=== PATIENT | male | born 1980 | race Two or more races ===

== ENCOUNTER 2024-12-31 12:34 | Outpatient (REF) | payer MEDICAID, SELFPAY ==
[2024-12-31 14:35] LABS: Alanine Aminotransferase 36 U/L (0-40); Albumin Level 4.7 g/dL (3.5-5.0); Alkaline Phosphatase 93 U/L (39-117); Anion Gap 13 (12-20); Aspartate Amino Transferase 32 U/L (5-37); Blood Urea Nitrogen 10 mg/dL (9-16); Calcium 9.2 mg/dL (8.4-10.2); Carbon Dioxide 29 mmol/L (22-29); Chloride 104 mmol/L (96-108); Cholesterol 160 mg/dL (<200); Estimated Glomerular Filt Rate > 60; HDL Cholesterol 46 mg/dL (>40); Potassium 3.6 mmol/L (3.3-5.1); Sodium 142 mmol/L (135-145); Total Protein 7.5 g/dL (6.5-8.0); Triglycerides 200 mg/dL (<150)
[2024-12-31 15:12] LABS: Microalbum/Creatinine Ratio Ur 17.6 ug/mg cr (<30)
--- OUTSIDE RECORDS SUMMARY | 2024-12-31 15:31 | XMS_ITS | Clinical Summary ---
Author Organization [employer] Address [address] [facility] 7t [place] [address] Care Team Providers Care Nocturnist Name Role Phone Unavailable Primary Care Provider Unavailabl e Allergies No known active allergies Medications benztropine (Cogentin) 0.5 MG tablet Take 0.5 mg by mouth in the morning. 10/04/19 25 Active Suboxone 2-0.5 MG per sublingual film PLACE THREE (3) FILMS UNDER THE TONGUE DAILY 10/04/19 25 Active Suboxone 8-2 MG SL film TAKE 1 FILM SUBLINGUALLY EVERY DAY 11/16/19 25 Active busPIRone (Buspar) 15 MG tablet Take 1 tablet by mouth 2 times daily. 10/04/19 25 Active haloperidol decanoate (Haldol Decanoate) 50 MG/ML injection INJECT 1 ML INTRAMUSCULARLY ONCE A MONTH LAST INJECTION GIVEN 09/05/24 10/05/19 25 Active naloxone (Narcan) 4 mg/0.1 mL nasal spray USE 1 SPRAY IN 1 NOSTRIL NEEDED FOR OPIOID OVERDOSE. MAY REPEAT EVERY 3 MINS IN ALTERNATE NOSTRIL 10/04/19 25 Active amLODIPine (Norvasc) 10 MG tabletIndication s:Primary hypertension Take 1 tablet (10 mg) by mouth Once per day. 90 tablet 3 11/22/19 25 026 Active atorvastatin (Lipitor) 40 MG tabletIndication s:Dyslipidemia Take 1 tablet (40 mg) by mouth Once per day. 90 tablet 3 11/22/19 25 026 Active cholecalciferol (Vitamin D-3) 50 MCG (1999 UT) capsuleIndicatio ns:Vitamin D deficiency Take 1 capsule (50 mcg) by mouth Once per day. 90 capsule 3 11/22/19 25 Active lisinopril 10 MG tabletIndication s:Primary hypertension Take 1 tablet (10 mg) by mouth Once per day. 90 tablet 3 11/22/19 25 026 Active metoprolol succinate XL (Toprol-XL) 25 MG 24 hr tabletIndication s:Primary hypertension Take 1 tablet (25 mg) by mouth Once per day. Do not crush or chew. 90 tablet 3 11/22/19 25 026 Active tamsulosin (Flomax) 0.4 MG 24 hr capsuleIndicatio ns:Benign prostatic hyperplasia without lower urinary tract symptoms Take 1 capsule (0.4 mg) by mouth Once per day. 90 capsule 3 11/22/19 25 Active Active Problems No known active problems Encounters Date Type Department Care Team Description 11/27/2024 Population Health Risk Score [facility] () Department [address] [address] Provider, Population Health Generic 11/22/2024 Patient Outreach [facility] [address] [place] [phone] Kenneth Chavez RC Recovery Supports 11/21/2024 1:20 PM EDT Office Visit [facility] [address] [place] [phone] Jelly Glass MD Primary hypertension (Primary Dx); Dyslipidemia; Opioid use disorder; Benign prostatic hyperplasia without lower urinary tract symptoms; Vitamin D deficiency; Diabetes mellitus screening; Screening examination for STI 11/21/2024 Travel 10/15/2024 Telephone [facility] [address] [place] [phone] Yamil Bauer MD New pt appt from Last 3 Months Social History Tobacco Use Types Packs/Day Years Used Date Smoking Tobacco: Every Day Cigarettes Passive Smoke Exposure: Past Smokeless Tobacco: Never Tobacco Cessation:Ready to Q uit: Not Asked; Counseling Given: Not Answered Sex and Gender Information Value Date Recorded Sex Assigned at Male 11/21/2024 12:49 PM EDT Legal Sex Male 2:44 AM EDT Gender Identity Male 11/21/2024 12:49 PM EDT Sexual Orientation Straight 11/21/2024 12 :49 PM EDT Last Filed Vital Signs Vital Sign Reading Time Taken Comments Blood Pressure 136/84 11/21/2024 1:13 PM EDT Pulse 73 11/21/2024 1:13 PM EDT Temperature 36.6 C (97.9 F) 11/21/2024 1:13 PM EDT Respiratory Rate 19 11/21/2024 1:13 PM EDT Oxygen Saturation 98% 11/21/2024 1:13 PM EDT Inhaled Oxygen Concentration - - Weight 127 kg (280 lb) 11/21/2024 1:13 PM EDT Height - - Body Mass Index - - Plan of Treatment Upcoming Encounters Date Type Department Care Team (Late st Contact Info) Description 01/13/2025 2:00 PM EDT Office Visit [facility] [address] [place] [address] Name, MD Mata [address] [place] [address] Health Maintenance Due Date Last Done Comments Depression Screening 1980 HIV Screening 1980 SDOH Screening 1980 Disability Screening 1980 Alcohol/Substance Use Screening 1992 Family Planning (PISQ) 08/20/1995 HPV Vaccines (1 - Male 3-dos e series) 08/20/1995 Hepatitis C Screening 1998 DTaP/Tdap/Td Vaccines (1 - Tdap) 08/20/1999 Hepatitis B Vaccines (1 of 3 - 19+ 3-dose series) 08/20/1999 Pneumococcal Vaccine: Pediat rics (0 to 5 Years) and At-Risk Patients (6 to 49) Years (1 of 2 - PCV) 08/20/1999 COVID-19 Vaccine (1 - 2023-2 5 season) 2024 Influenza Vaccine (#1) 2024 Tobacco Screening 11/21/2025 11/21/2024 Diabetes: Hemoglobin A1C 12/31/2025 12/31/2024 Lipid Panel 12/31/2029 12/31/2024 Zoster Vaccines (1 of 2) 2030 RSV Patients and Pa tients Aged 60 years or older (1 - 1-dose 75+ series) 08/20/2055 HIB Vaccines Aged Out No longer eligi ble based on patient's age to complete this topic Hepatitis A Vaccines Aged Out No long er eligible based on patient's age to complete this topic IPV Vaccines Aged Out No longer eligi ble based on patient's age to complete this topic Meningococcal B Vaccine Aged Out No l onger eligible based on patient's age to complete this topic Meningococcal Vaccine Aged Out No mitchell sully eligible based on patient's age to complete this topic RSV under 20 months Aged Out No longe r eligible based on patient's age to complete this topic Rotavirus Vaccines Aged Out No longer eligible based on patient's age to complete this topic Procedures Procedure Name Priority Date/Time Associated Diagnosis Comments BASIC METABOLIC PANEL Routine 12/31/2024 12:53 PM EDT Primary hypertension HEMOGLOBIN A1C Routine 12/31/2024 12:53 PM EDT Diabetes mellitus screening LIPID PANEL, STANDARD Routine 12/31/2024 12:53 PM EDT Dyslipidemia HEPATIC FUNCTION PANEL Routine 12/31/2024 12:53 PM EDT Dyslipidemia ALBUMIN, RANDOM URINE W/CREATININE Routine 12/31/2024 12:47 PM EDT Primary hypertension from Last 3 Months Results * Hemoglobin A1c (12/31/2024 12:53 PM EDT) Hemoglobin A1c 5.7 <6.0 % [facility] Comment:Hemoglobin A1C Refer ence Range Adults: 4.8 - 6.0 % Non diabetic: < 6.0 % Goal: < 7.0 %Additional Action Suggested: > 8.0 %Note: Hemoglobin A1c results are invalid for patients with abnormal amounts of HbF. Blood transfusions may impact the HbA1c concentration in the patient sample. Estimated Average Glucose 117 mg/dL [facility] Comment:eAG = Estimated ave rage glucose which is %A1C expressed asaverage glucose, using the formula of the J4W-AvbcrjyQongrki Glucose study (ADAG), Diabetes Care, Vol.31,#8,Oct. 2007 Blood Venous blood specimen / Unknown 12/31/2024 12:53 PM EDT 12/31/2024 12:53 PM EDT Jelly Glass MD LAB BLOOD ORDERABLES Final Result [facility] [address] [place] [phone] * Hepatic Function Panel (12/31/2024 12:53 PM EDT) Bilirubin, Total 0.3 0.0 - 1.0 mg/dL [facility] Bilirubin, Direct 0.1 0.0 - 0.5 mg/dL [facility] Aspartate Amino Transferase 32 5 - 37 U/L [facility] Alanine Aminotransferase 36 0 - 40 U/L [facility] Total Protein 7.5 6.5 - 8.0 g/dL [facility] Albumin Level 4.7 3.5 - 5.0 g/dL [facility] Alkaline Phosphatase 93 39 - 117 U/L [facility] Blood Venous blood specimen / Unknown 12/31/2024 12:53 PM EDT 12/31/2024 12:53 PM EDT us Jelly Glass MD LAB BLOOD ORDERABLES Final Result Performing Organization Address [facility] Co de Phone Number [facility] [address] [place] [phone] [phone] * (ABNORMAL) Lipid Panel, Standard (12/31/2024 12:53 PM EDT) Triglycerides 200(H) <150 mg/dL [facility] Comment:Desirable Triglyceri de: less than 150 mg/dLBorderline High Triglyceride 150-199 mg/dLHigh Triglyceride: 200-499 mg/dLVery High Triglyceride: greater than or equal to 5OO mg/dL Cholesterol 160 <200 mg/dL [facility] Comment:Desirable Cholestero l: less than 200 mg/dLBorderline High Cholesterol: 200-239 mg/dLHigh Cholesterol: greater than 239 mg/dL LDL Cholesterol Calculated 74 <100 mg/dL [facility] Comment:Desirable LDL: less than 100 mg/dLNear Optimal/Above Optimal LDL: 110- 129 mg/dLBorderline High LDL: 130-159 mg/dLHigh LDL: 160-189 mg/dLVery High LDL: greater than or equal to 190 mg/dL HDL Cholesterol 46 >40 mg/dL [facility] Comment:Desirable HDL: great er than 40 mg/dL Note: This HDL assay may give artificially low results in patients with liver disease. Blood Venous blood specimen / Unknown 12/31/2024 12:53 PM EDT 12/31/2024 12:53 PM EDT Jelly Glass MD LAB BLOOD ORDERABLES Final Result Performing Organization Address [facility]/ZIP Co de Phone Number [facility] [address] [place] [address] [phone] * (ABNORMAL) Basic Metabolic Panel (12/31/2024 12:53 PM EDT) Sodium 142 135 - 145 mmol/L [facility] Potassium 3.6 3.3 - 5.1 mmol/L [facility] Chloride 104 96 - 108 mmol/L [facility] Carbon Dioxide 29 22 - 29 mmol/L [facility] Anion Gap 13 12 - 20 [facility] Urea Nitrogen (BUN) 10 9 - 16 mg/dL [facility] Creatinine, Serum 0.79 0.5 - 1.4 mg/dL [facility] Estimated Glomerular Filt Rate >60 [facility] Comment:Chronic Kidney Disea se: Estimated GFR < 60 mL/min/1.12z3Bztoxo Kidney Disease: Estimated GFR < 15 mL/min/1.73m2 Glucose 133(H) 60 - 115 mg/dL [facility] Calcium 9.2 8.4 - 10.2 mg/dL [facility] Blood Venous blood specimen / Unknown 12/31/2024 12:53 PM EDT 12/31/2024 12:53 PM EDT Jelly Glass MD LAB BLOOD ORDERABLES Final Result Performing Organization Address City/[facility]/ZIP Co de Phone Number [facility] [address] [place] [phone] * Albumin, Random Urine W/Creatinine (12/31/2024 12:47 PM EDT) Creatinine, Urine 153.19 mg/dL [facility] Microalbumin Urine 27.0 mg/L [facility] Microalbum Creatinine Ratio Ur 17.6 <30 ug/mg cr [facility] Comment:Albumin/Creatinine R atio Reference Ranges: Normal: < 30 ug/mg creatinine Microalbuminuria: 30 - 300 ug/mg creatinineClinical Albuminuria: > 300 ug/mg creatinine Urine 12/31/2024 12:4 7 PM EDT 12/31/2024 2:03 PM EDT us Jelly Glass MD LAB URINE ORDERABLES Final Result [facility] [address] [place] [phone] [phone] from Last [address] [place] [address] [place] [address] C3 Care Teams Nocturnist Relationship Specialty Start Date End Date [facility] Psychiatry 11/21/24
[2025-01-01 07:59] LABS: Syphilis Screen Nonreactive (Nonreactive)
[2025-01-01 08:15] LABS: HIV Num 1 0.05 S/CO (0.00-0.99); ~HepC Num1 0.07 S/CO (0.00-0.79); ~Hepatitis C Antibody Nonreactive (Nonreactive)
== END 2024-12-31 12:35 | disposition home or self-care (01) ==
LOC: HO.LAB 12:34
PROVIDERS: Visit Provider Family Medicine
DX: Z13.1 Encounter for screening for diabetes mellitus (principal); Z11.3 Encounter for screening for infections with a predominantly sexual mode of transmission; Z11.4 Encounter for screening for human immunodeficiency virus [HIV]; Z11.59 Encounter for screening for other viral diseases; I10 Essential (primary) hypertension; E78.5 Hyperlipidemia, unspecified
CPT/HCPCS: 36415; 80048; 80061; 80076; 82043; 82570; 83036; 86780; 86803; 87389

== ENCOUNTER → 2025-02-05 07:42 | Outpatient (REF) | payer MEDICAID, SELFPAY ==
--- OUTSIDE RECORDS SUMMARY | 2025-02-05 07:44 | XMS_ITS | Encounter Summary ---
Author Organization [employer] Address [address] [facility] [address] [place] [address] Care Team Providers Care Automotive Tire Technician Name Role Phone Name, Mata MONCADA Primary Care Provider [phone] Encounter Details Date Type Department Care Team (Latest Contact Info) Description 02/02/2025 Travel Social History Tobacco Use Types Packs/Day Years Used Date Smoking Tobacco: Every Day Cigarettes Passive Smoke Exposure: Past Smokeless Tobacco: Never Alcohol Use Standard Drinks/Week Comments Not Currently 0 (1 standard drink = 0.6 oz pur e alcohol) Depression Answer Date Recorded Patient Health Questionnaire-9 Score 0 01/13/2025 Patient Health Questionnaire-9 Score 0 01/13/2025 Last PHQ-9: Questionnaire Data Not on file 1 Housing Stability Answer Date Recorded What is your housing situation today? I do not have housing (Staying with others, in a hotel, in a group home, living outside on the street, on a beach, in a car, or in a park 01/13/[address] you li ve. Do you have problems with any of the following? None of the above 01/13/2025 Food Insecurity Answer Date Recorded Within the past 12 months, y ou worried that your food would run out before you got money to buy more: Never True 01/06/2025 Within the past 12 months,th e food you bought just didn't last and you didn't have enough money to get more: Never True Transportation Answer Date Recorded In the past 12 months, has l ack of transportation kept you from medical appts, meetings, work or from getting things needed for daily living? No 01/06/2025 Utilities Answer Date Recorded In the past 12 months, has t he electric, gas, oil or water [employer] threatened to shut off services in your home? No 01/06/2025 Depression Answer Date Recorded Patient Health Questionnaire-2 Score 0 01/13/2025 Internet Access Answer Date Recorded Internet Access Q1 Yes 01/06/2025 Internet Access Q2 Not on file 01/06/2025 Sex and Gender Information Value Date Recorded Sex Assigned at Male 11/21/2024 12:49 PM EDT Legal Sex Male 2:44 AM EDT Gender Identity Male 11/21/2024 12:49 PM EDT Sexual Orientation Straight 11/21/2024 12 :49 PM EDT documented as of this encounter Plan of Treatment Upcoming Encounters Date Type Department Care Team (Late st Contact Info) Description 03/06/2025 11:30 AM EST Telemedicine [facility] [address] [place] [phone] NameMata MD [address] [place] [phone] documented as of this encounter Visit Diagnoses Not on filedocumented in this encounter Additional Health Concerns Assessment Noted Time PHQ-9 Depression Total Score: 0 01/14/20 2:19 PM EDT documented as of this encounter Care Teams Automotive Tire Technician Relationship Specialty Start Date End Date NameMata MD [address] [place] [phone] PCP - General Internal Medicine 01/13/25 N N Psychiatry 11/21/24 documented as of this encounter
--- OUTSIDE RECORDS SUMMARY | 2025-02-05 07:44 | XMS_ITS | Encounter Summary ---
Author Organization [employer] Address [address] [facility] 7t [place] [address] Care Team Providers Care Doll Dresser Name Role Phone Name, Mata MONCADA Primary Care Provider [phone] Encounter Details Date Type Department Care Team (Latest Contact Info) Description 02/04/2025 Travel Social History Tobacco Use Types Packs/Day [...] with others, in a hotel, in a chcf, living outside on the street, on a [...] t he electric, gas, oil or water [employer] threatened to shut off services in your [...] Info) Description 03/06/2025 11:30 AM EST Telemedicine [facility] [address] [place] [phone] NameMata MD [address] [place] [phone] documented as of this encounter Visit Diagnoses Not on filedocumented in this encounter Additional Health Concerns Assessment Noted Time PHQ-9 Depression Total Score: 0 01/14/20 2:19 PM EDT documented as of this encounter Care Teams Doll Dresser Relationship Specialty Start Date End Date NameMata MD [address] [place] [phone] PCP - General Internal Medicine 01/13/25 N N Psychiatry 11/21/24 documented as of this encounter
--- OUTSIDE RECORDS SUMMARY | 2025-02-05 07:44 | XMS_ITS | Encounter Summary ---
Author Organization [employer] Address [address] [facility] 7t [place] [address] Care Team Providers Care Ballet Professor Name Role Phone Name, Mata MONCADA Primary Care Provider [phone] Encounter Details Date Type Department Care Team (Latest Contact Info) Description 02/03/2025 Travel Social History Tobacco Use Types Packs/Day [...] with others, in a hotel, in a mcc, living outside on the street, on a [...] t he electric, gas, oil or water [employer] threatened to shut off services in your [...] Info) Description 03/06/2025 11:30 AM EST Telemedicine [facility] [address] [place] [phone] NameMata MD [address] [place] [phone] documented as of this encounter Visit Diagnoses Not on filedocumented in this encounter Additional Health Concerns Assessment Noted Time PHQ-9 Depression Total Score: 0 01/14/20 2:19 PM EDT documented as of this encounter Care Teams Ballet Professor Relationship Specialty Start Date End Date NameMata MD [address] [place] [phone] PCP - General Internal Medicine 01/13/25 N N Psychiatry 11/21/24 documented as of this encounter
--- OUTSIDE RECORDS SUMMARY | 2025-02-05 07:44 | XMS_ITS | Clinical Summary ---
Author Organization [employer] Address [address] [facility] [address] [place] [address] Care Team Providers Care Radio Frequency Engineer Name Role Phone Name, Mata MONCADA Primary Care Provider [phone] Allergies No known active allergies Medications benztropine (Cogentin) 0.5 MG tablet Take 0.5 mg by mouth in the morning. 10/04/19 25 Active busPIRone (Buspar) 15 MG tablet [...] 10/04/19 25 Active amLODIPine (Norvasc) 10 MG tabletIndicatio ns:Primary hypertension Take 1 tablet (10 mg) by mouth Once per day. 90 tablet 3 11/22/19 25 026 Active atorvastatin (Lipitor) 40 MG tabletIndicatio ns:Dyslipidemia Take 1 tablet (40 mg) by mouth Once per day. 90 tablet 3 11/22/19 25 026 Active cholecalciferol (Vitamin D-3) 50 MCG (1999 UT) capsuleIndicati ons:Vitamin D deficiency Take 1 capsule (50 mcg) by mouth Once per day. 90 capsule 3 11/22/19 25 Active lisinopril 10 MG tabletIndicatio ns:Primary hypertension Take 1 tablet (10 mg) by mouth Once per day. 90 tablet 3 08 026 Active metoprolol succinate XL (Toprol-XL) 25 MG 24 hr tabletIndicatio ns:Primary hypertension Take 1 tablet (25 mg) by mouth Once per day. Do not crush or chew. 90 tablet 3 11/22/19 026 Active tamsulosin (Flomax) 0.4 MG 24 hr capsuleIndicati ons:Benign prostatic hyperplasia without lower urinary tract symptoms Take 1 capsule (0.4 mg) by mouth Once per day. 90 capsule 3 11/22/19 Active Suboxone 2-0.5 MG per sublingual film PLACE THREE (3) FILMS UNDER THE TONGUE DAILY 10/04/19 025 Discontin ued(Thera py completed ) Suboxone 8-2 MG SL film TAKE 1 FILM SUBLINGUALLY EVERY DAY 11/16/19 025 Discontin ued(Thera py completed ) Active Problems Problem Noted Date Diagnosed Date Schizoaffective disorder, bipolar type (CMS/HCC) 01/13/2025 Prediabetes 01/13/2025 Primary hypertension 01/13/2025 Opioid use disorder in remission 01/13/2025 Vaccination refused by patient 01/13/2025 Tobacco use disorder 01/13/2025 History of aortic stenosis 01/13/2025 History of heart surgery 01/13/2025 Encounters Date Type Department Care Team Description 02/04/2025 Travel 02/03/2025 Travel 02/02/2025 Travel 01/30/2025 Travel 01/13/2025 2:00 PM EDT Office Visit [facility] [address] [place] [address] [phone] Mata Maloney MD Primary hypertension (Primary Dx); Aortic valve stenosis, etiology of cardiac valve disease unspecified; Schizoaffective disorder, bipolar type (CMS/HCC) (HCC); Prediabetes; Vaccination refused by patient; Tobacco use disorder 01/13/2025 Travel 01/10/[address] [facility] [address] [place] [address] Mata Maloney MD chart prep 01/06/2025 Patient Outreach [facility] [address] [place], [place] [phone] Mata Maloney MD Pre-visit Planning (SDOH negative, Tobacco screening positive) 01/01/2025 Results Follow-Up [facility] [address] [place] [phone] Jelly Glass MD Albumin, Random Urine W/Creatinine, Hepatic Function Panel, Lipid Panel, Standard, Additional followed-up results: 5 11/27/2024 Population Health Risk Score [facility] () [address] [address] Provider, Population Health Generic 11/22/2024 Patient Outreach [facility] [address] [place] [phone] Kenneth Chavez Recovery Supports 11/21/2024 1:20 PM EDT Office Visit [facility] [address] [place] [phone] Jelly Glass MD Primary hypertension (Primary Dx); Dyslipidemia; Opioid use disorder; Benign prostatic hyperplasia without lower urinary tract symptoms; Vitamin D deficiency; Diabetes mellitus screening; Screening examination for STI 11/21/2024 Travel from Last 3 Months Social History Tobacco Use Types Packs/Day Years Used Date Smoking Tobacco: Every Day Cigarettes Passive Smoke Exposure: Past Smokeless Tobacco: Never Tobacco Cessation:Ready to Q uit: Not Asked; Counseling Given: Not Answered Alcohol Use Standard Drinks/Week Comments Not Currently [...] with others, in a hotel, in a jail, living outside on the street, on a [...] t he electric, gas, oil or water company threatened to shut off services in your [...] Sign Reading Time Taken Comments Blood Pressure 140/85 01/13/2025 2:38 PM EDT Pulse 81 01/13/2025 2:13 PM EDT Temperature 36.1 C (97 F) 01/13/2025 2:13 PM EDT Respiratory Rate 18 01/13/2025 2:13 PM EDT Oxygen Saturation 97% 01/13/2025 2:13 PM EDT Inhaled Oxygen Concentration - - Weight 125 kg (276 lb 9.6 oz) 01/13/2025 2:13 PM EDT Height 180.3 cm (5' 11 ) 01/13/2025 2:13 PM EDT Body Mass Index 38.58 01/13/2025 2:13 PM EDT Plan of Treatment Upcoming Encounters Date Type Department Care Team (Late st Contact Info) Description 03/06/2025 11:30 AM EST Telemedicine [facility] [address] [place] [address] Name, MD Mata [address] [place] [address] Health Maintenance Due Date Last Done Comments Family Planning (PISQ) 08/20/1995 HPV Vaccines (1 - Male 3-dos e series) 08/20/1995 DTaP/Tdap/Td Vaccines (1 - Tdap) 08/20/1999 Hepatitis B Vaccines (1 of 3 - 19+ 3-dose series) 08/20/1999 Pneumococcal Vaccine: Pediatrics (0 to 5 Years) and At-Risk Patients (6 to 49) Years (1 of 2 - PCV) 08/20/1999 COVID-19 Vaccine (1 - 2023-2 5 season) 2024 Influenza Vaccine (#1) 2024 Diabetes: Hemoglobin A1C 12/31/2025 12/31/2024 Alcohol/Substance Use Screening 01/13/2026 01/13/2025 Depression Screening 01/13/2026 01/13/2025, 01/13/2025 SDOH Screening 01/13/2026 01/13/2025 Tobacco Screening 01/13/2026 01/13/2025 Disability Screening 01/30/2026 01/30/2025 Lipid Panel 12/31/2029 12/31/2024 Zoster Vaccines (1 of 2) 2030 RSV Patients and Patients Aged 60 years or older (1 - 1-dose 75+ series) 08/20/2055 HIV Screening Completed 12/31/2024 Hepatitis C Screening Completed 12/31/2024 HIB Vaccines Aged Out No longer eligi [...] Procedure Name Priority Date/Time Associated Diagnosis Comments HEPATITIS C AB W/REFL TO HCV RNA, QN, PCR Routine 12/31/2024 12:53 PM EDT Screening examination for STI SYPHILIS SCREEN Routine 12/31/2024 12:53 PM EDT Screening examination for STI HIV 1/2 ANTIGEN/ANTIBODY, FOURTH GENERATION W/RFL Routine 12/31/2024 12:53 PM EDT Screening examination for STI BASIC METABOLIC PANEL Routine 12/31/2024 12:53 PM EDT Primary hypertension HEMOGLOBIN A1C Routine 12/31/2024 12:53 PM EDT Diabetes mellitus screening LIPID PANEL, STANDARD Routine 12/31/2024 12:53 PM EDT Dyslipidemia HEPATIC FUNCTION PANEL Routine 12/31/2024 12:53 PM EDT Dyslipidemia ALBUMIN, RANDOM URINE W/CREATININE Routine 12/31/2024 12:47 PM EDT Primary hypertension from Last 3 Months Results * Syphilis Screen (12/31/2024 12:53 PM EDT) Syphilis Screen Nonreactive Nonreactive [facility] Blood Venous blood specimen / Unknown 12/31/2024 12:53 PM EDT 12/31/2024 12:53 PM EDT Jelly Glass MD LAB BLOOD ORDERABLES Final Result Performing Organization Address [facility]/ZIP Co de Phone Number [facility] [address] [place] [phone] * Hepatitis C Antibody with Reflex to HCV, RNA, Quantitative, Real-Time PCR (12/31/2024 12:53 PM EDT) Hepatitis C Antibody Nonreactive Nonreactive [facility] Comment:Antibodies to HCV no t detected; does not exclude early acuteHCV infection. Blood Venous blood specimen / Unknown 12/31/2024 12:53 PM EDT 12/31/2024 12:53 PM EDT Jelly Glass MD LAB BLOOD ORDERABLES Final Result Performing Organization Address City/[facility]/ZIP Co de Phone Number [facility] [address] [place] [phone] * HIV-1/2 Antigen and Antibodies, Fourth Generation, with Reflexes (12/31/2024 12:53 PM EDT) HIV AB/AG Nonreactive Nonreactive [facility] Comment:HIV-1 p24 Ag and/or HIV-1/HIV-2 Ab not detected.A test result that is nonreactive does not exclude thepossibility of exposure to or infection with HIV-1 and/orHIV-2. Nonreactive results in this assay for individualswith prior exposure to HIV-1 and/or HIV-2 may be due toantigen and antibody levels that are below the limit ofdetection of this assay.The [employer] HIV Ag/Ab Combo assay result andsupplemental assay results should be interpreted inconjunction with the patient's clinical presentation,history and other laboratory results. If the results areinconsistent with clinical evidence, additional testing issuggested to confirm the result. Blood Venous blood specimen / Unknown 12/31/2024 12:53 PM EDT 12/31/2024 12:53 PM EDT us Jelly Glass MD LAB BLOOD ORDERABLES Final Result [facility] [address] [place] [phone] * Hemoglobin A1c (12/31/2024 12:53 PM EDT) Hemoglobin A1c 5.7 <6.0 % [facility] Comment:Hemoglobin A1C Refer ence Range Adults: 4.8 - 6.0 % Non diabetic: < 6.0 % Goal: < 7.0 %Additional Action Suggested: > 8.0 %Note: Hemoglobin A1c results are invalid for patients with abnormal amounts of HbF. Blood transfusions may impact the HbA1c concentration in the patient sample. Estimated Average Glucose 117 mg/dL [facility] Comment:eAG = Estimated ave rage glucose which is %A1C expressed asaverage glucose, using the formula of the X1J-RvawhioAphreuq Glucose study (ADAG), Diabetes Care, Vol.31,#8,2007 Blood Venous blood specimen / Unknown 12/31/2024 12:53 PM EDT 12/31/2024 12:53 PM EDT Jelly Glass MD LAB BLOOD ORDERABLES Final Result Performing Organization Address [facility]/RUST Co de Phone Number [facility] [address] [place] [phone] [phone] * Hepatic Function Panel (12/31/2024 12:53 PM EDT) Bilirubin, Total 0.3 0.0 - 1.0 mg/dL [facility] Bilirubin, Direct 0.1 0.0 - 0.5 mg/dL [facility] Aspartate Amino Transferase 32 5 - 37 U/L [facility] Alanine Aminotransferase 36 0 - 40 U/L [facility] Total Protein 7.5 6.5 - 8.0 g/dL [facility] Albumin Level 4.7 3.5 - 5.0 g/dL [facility] Alkaline Phosphatase 93 39 - 117 U/L [facility] Blood Venous blood specimen / Unknown 12/31/2024 12:53 PM EDT 12/31/2024 12:53 PM EDT Jelly Glass MD LAB BLOOD ORDERABLES Final Result Performing Organization Address [facility]/RUST Co de Phone Number [facility] [address] [place] [phone] [phone] * (ABNORMAL) Lipid Panel, Standard (12/31/2024 12:53 PM EDT) Triglycerides 200(H) <150 mg/dL [facility] Comment:Desirable Triglyceri de: less than 150 mg/dLBorderline High Triglyceride 150-199 mg/dLHigh Triglyceride: 200-499 mg/dLVery High Triglyceride: greater than or equal to 5OO mg/dL Cholesterol 160 <200 mg/dL [facility] Comment:Desirable Cholestero l: less than 200 mg/dLBorderline High Cholesterol: 200-239 mg/dLHigh Cholesterol: greater than 239 mg/dL LDL Cholesterol Calculated 74 <100 mg/dL [facility] Comment:Desirable LDL: less than 100 mg/dLNear Optimal/Above Optimal LDL: 110- 129 mg/dLBorderline High LDL: 130-159 mg/dLHigh LDL: 160-189 mg/dLVery High LDL: greater than or equal to 190 mg/dL HDL Cholesterol 46 >40 mg/dL [facility] Comment:Desirable HDL: great er than 40 mg/dL Note: This HDL assay may give artificially low results in patients with liver disease. Blood Venous blood specimen / Unknown 12/31/2024 12:53 PM EDT 12/31/2024 12:53 PM EDT us Jelly Glass MD LAB BLOOD ORDERABLES Final Result [facility] [address] [place] [address] [phone] * (ABNORMAL) Basic Metabolic Panel (12/31/2024 12:53 PM EDT) Sodium 142 135 - 145 mmol/L [facility] Potassium 3.6 3.3 - 5.1 mmol/L [facility] Chloride 104 96 - 108 mmol/L [facility] Carbon Dioxide 29 22 - 29 mmol/L [facility] Anion Gap 13 12 - 20 [facility] Urea Nitrogen (BUN) 10 9 - 16 mg/dL [facility] Creatinine, Serum 0.79 0.5 - 1.4 mg/dL [facility] Estimated Glomerular Filt Rate >60 [facility] Comment:Chronic Kidney Disea se: Estimated GFR < 60 mL/min/1.48q7Juiwve Kidney Disease: Estimated GFR < 15 mL/min/1.73m2 Glucose 133(H) 60 - 115 mg/dL [facility] Calcium 9.2 8.4 - 10.2 mg/dL [facility] Blood Venous blood specimen / Unknown 12/31/2024 12:53 PM EDT 12/31/2024 12:53 PM EDT Jelly Glass MD LAB BLOOD ORDERABLES Final Result Performing Organization Address [facility] Co de Phone Number [facility] [address] [place] [phone] * Albumin, Random Urine W/Creatinine (12/31/2024 12:47 PM EDT) Creatinine, Urine 153.19 mg/dL [facility] Microalbumin Urine 27.0 mg/L [facility] Microalbum Creatinine Ratio Ur 17.6 <30 ug/mg cr [facility] Comment:Albumin/Creatinine R atio Reference Ranges: Normal: < 30 ug/mg creatinine Microalbuminuria: 30 - 300 ug/mg creatinineClinical Albuminuria: > 300 ug/mg creatinine Urine 12/31/2024 12:4 7 PM EDT 12/31/2024 2:03 PM EDT Jelly Glass MD LAB URINE ORDERABLES Final Result Performing Organization Address [facility] Co de Phone Number [facility] [address] [place] [phone] from Last 3 Months Insurance [facility] C3 Care Teams Radio Frequency Engineer Relationship Specialty Start Date End Date Name, MD Mata [address] [place] [phone] PCP - General Internal Medicine 01/13/25 [facility] Psychiatry 11/21/24
--- NOTE | 2025-02-05 07:45 | CA_ITS ---
Transthoracic Echocardiogram Patient (Last, First, Middle): Mitchel Zamora, Gender: M Date of : 1980 Age: 44 Procedure Date: 02/05/2025 Procedure Type: Transthoracic Echocardiogram Location: OP Height: 180.34 cm Weight: 126.1 kg BSA: 2.43 m2 Heart Rate: bpm BP: 142 / 96 mmHg Phototypesetting Equipment Monitor: TO Referring MD: Mata Maloney MD Safety Specialist: Manuel Casper MD Symptoms: AORTIC STENOSIS, history heart surgery at age 10 Study Quality: Fair/Contrast ECG Rhythm: Sinus Conclusions: - 1. Normal LV ejection fraction 55-60% with increased gradient through the LVOT suggestive of obstructive lesion 2. [id number] aortic regurgitation 3. Upper limits of normal RV systolic pressure 4. No gross pericardial effusion Findings Procedure Information Contrast agent, definity, is being given per protocol without apparent complications. Left Ventricle Normal left ventricular size, thickness, and systolic function. The visually estimated ejection fraction is between 55-60%. There is dynamic left ventricular outflow tract obstruction. Spectral Doppler is indicative of a normal filling pattern. There is mild septal asymmetric hypertrophy. there is increased gradient across the aortic valve, predominantly appears to be at the LVOT level without any dynamic component. This is usually suggestive of subaortic obstruction with possibly membrane in the LVOT area. However a definitive obstructive physiology is not identified on this study. Consider VERONA Right Ventricle Normal right ventricular cavity size and systolic function. Atria The left atrium is mildly dilated. There is no evidence of interatrial shunt. The right atrium is normal in size. Aortic Valve The aortic valve was not well visualized. The mean gradient is 29 mmHg. There is mild to moderate aortic valve regurgitation. Mitral Valve Likely normal mitral valve structure and function. There is trace mitral valve regurgitation. There is no mitral valve stenosis. Pulmonic Valve The pulmonic valve was not well visualized. Tricuspid Valve Normal tricuspid valve structure. There is mild tricuspid valve regurgitation. The right ventricular systolic pressure is 37 mmHg. Normal right atrial pressure. There is no evidence of pulmonary hypertension. Great Vessels All visible segments of the aorta are normal in size. The pulmonary artery was not well visualized. There is no dilatation of the ascending aorta measuring 3.40 cm. Venous The inferior vena cava is normal in size and collapses greater than 50% with inspiration. Pericardium/Pleural There is no evidence of pericardial effusion. Prior Study Comparison No prior study available for comparison. Recommendations, Care & Conclusions Recommend a VERONA. Measurements 2D Linear Measurements IVSd: 1.20 0.6-0.9/0.6-1.0 cm LVIDd: 5.03 3.9-5.3/4.2-5.9 cm LVIDd Index: 2.07 2.4-3.2/2.2-3.1 cm/m2 LVIDs: 3.64 2.0-3.6 cm LVPWd: 1.01 0.7-1.1 cm LA Diam: 3.30 2.7-3.8/3.0-4.0 cm LAIDs Index: 1.36 1.5-2.3 cm/m2 LV Mass: 262.33 67-162/88-224 g LV Mass Index: 107.95 43-95/49-115 g/m2 LVOT Diam: 2.50 3.0+(-)1.3 cm 2D Systolic Function EF 4C: 53.80 >55% EF 2C: 52.60 >55% EF BiP: 54.60 >55% Mitral Valve MV VTI: 0.33 MV Pk Jose Eduardo: 1.09 MV Mn Jose Eduardo: 0.78 MV Pk Grad: 5.00 MV Mn Grad: 3.00 MV Pk E: 1.04 MV PK A: 0.81 MV Decel Time: 176.00 E/A: 1.30 E'Lateral: 6.96 E'Medial: 7.18 E/E' Med: 14.50 E/E' Lat: 14.90 PHT: 52.00 MVA PHT: 4.23 MVA Continuity: 11.00 Decel Tillman: 5.91 Aortic Valve AoV Pk Jose Eduardo: 3.41 AoV Mn Jose Eduardo: 2.57 AoV VTI: 0.76 AoV Pk Grad: 47.00 Aov Mn Grad: 29.00 INES Cont.VTI: 4.83 AI Pk Jose Eduardo: 5.03 AI Tillman: 3.64 LVOT LVOT Pk Jose Eduardo: 3.21 LVOT Mn Jose Eduardo: 2.46 LVOT VTI: 0.74 LVOT Pk Grad: 41.00 LVOT Mn Grad: 26.00 LVOT Diam: 2.50 LVOT Area: 4.91 Diastolic Function MV Pk E: 1.04 MV Pk A: 0.81 E/A: 1.30 E'Medial: 7.18 E/E' Med: 14.50 E' Laterial: 6.96 E/E' Lat: 14.90 Right Ventricle TAPSE (mm): 15.90 TVS' Jose Eduardo: 9.57 Tricuspid Valve TR Pk Jose Eduardo: 2.90 TR Pk Grad: 34.00 RA Press: 3.00 RVSP: 37.00 Great Vessels Aorta Sinus of Valsalva: 3.49 2.0-3.5 cm Ao Asc: 3.40 2.1-3.4 cm Ao Arch: 3.30 Updated in Other Vendor System with Status of Final Manuel Casper MD electronically signed on 02/05/2025 6:15:16 PM with status of Final
== END ==
LOC: HO.CARD 07:42
PROVIDERS: PCP Internal Medicine Geriatric Medicine; Visit Provider Internal Medicine Geriatric Medicine
DX: I35.0 Nonrheumatic aortic (valve) stenosis (principal)
CPT/HCPCS: 93306; Q9957

== ENCOUNTER → 2025-02-05 07:45 | Outpatient (BNV) | payer MEDICAID, SELFPAY | PROVIDERS: PCP Internal Medicine Geriatric Medicine; Visit Provider Internal Medicine Cardiovascular Disease | DX: I35.1 Nonrheumatic aortic (valve) insufficiency (principal); I42.8 Other cardiomyopathies | CPT/HCPCS: 93306 ==